=== PATIENT | female | born 1955 | race Two or more races ===

== ENCOUNTER → 2018-01-23 | Emergency (ER) | payer OTHER ==
[~2018-01-23] VITALS: Ht 165.1 cm; Wt 99.8 kg
[~2018-01-23] MED LIST: ADVIL200 MG; INTESTINEX1 CA1 PO; KETO10TA2 PO; METHOTREXATE2.5 MG; METROLOTION59 ML; PROTONIX20 MG PO; PROVENTIL3 ML/2.5 M IH
== END | disposition home or self-care (01) ==
LOC: ER 21:46
DX: S76.011A Strain of muscle, fascia and tendon of right hip, initial encounter (principal); W18.39XA Other fall on same level, initial encounter; Y93.89 Activity, other specified; Y92.098 Other place in other non-institutional residence as the place of occurrence of the external cause; Y99.8 Other external cause status